=== PATIENT | male | born 1980 | race Caucasian/White ===

== ENCOUNTER 2016-08-09 11:47 | Emergency (ER) | payer BC ==
[~2016-08-09] VITALS: Ht 180.3 cm; Wt 72.6 kg
[~2016-08-09 11:47] MED LIST: EFFEXOR XR150 MG PO; Percocet 5/325,Endoc PO; ZOFRAN4 MG PO
[2016-08-09] MEDS ORDERED: FLEXERIL10 MG PO (12:51)
[2016-08-09] MEDS ORDERED: MOTRIN800 MG PO (12:51)
[2016-08-09 14:16] VITALS: BP 128/74
== END 2016-08-09 14:20 | disposition home or self-care (01) ==
LOC: EME 11:47
DX: M54.42 Lumbago with sciatica, left side (principal); F17.200 Nicotine dependence, unspecified, uncomplicated
CPT/HCPCS: 99281; 99283; J1100; J1885

== ENCOUNTER 2016-10-30 13:54 | Observation (INO) | payer BC ==
[~2016-10-30] VITALS: Ht 177.8 cm; Wt 73.3 kg
[~2016-10-30 13:54] MED LIST changes: +FLEXERIL10 MG PO; +MOTRIN800 MG PO
[2016-10-30 15:44] LABS: HEMATOCRIT 49.1 % (38.0-50.0); MCH 29.7 PG (29.0-34.0); MCHC 33.8 G/DL (30.0-36.0); MCV 87.8 FL (86-99); RBC DIS.WIDTH-CV 12.3 % (11.8-14.6); RBC DIS.WIDTH-SD 39.8 % (39-53); RED BLOOD COUNT 5.59 M/uL (4.00-5.50)
[2016-10-30 15:55] LABS: CHLORIDE 103 mEq/L (99-109); POTASSIUM 4.7 mEq/L (3.7-5.4); SODIUM 140 mEq/L (136-147)
[2016-10-30 15:56] LABS: GLUCOSE 90 mg/dL (70-99)
[2016-10-30 15:58] LABS: ANION GAP 9 MEQ/L (2-14)
[2016-10-30 16:00] LABS: GFR ESTIMATE (CALCULATED) > 59 mL/min/
[2016-10-30 16:01] LABS: UREA NITROGEN (BUN) 13 mg/dL (9-23)
[2016-10-30 16:10] LABS: TROP-I INTERPRETATION NEGATIVE; TROPONIN-I < 0.01 ng/mL (0.0-0.30)
[2016-10-30 16:49] LABS: PLAT.SUFFICIENCY ADEQUATE; PLATELET CLUMPS PRESENT - PLATELET COUNT APPEARS ADQ.; PLATELET COUNT UNABLE TO REPORT K/uL (156-360)
[2016-10-30 18:51] LABS: EOSINOPHIL (%) 0.1 % (0-5); IMMATURE GRANULOCYTE (%) 0.6 % (0.0-0.7); IMMATURE GRANULOCYTE COUNT 0.1 K/uL; INSTRUMENT ABS NEUTROPHIL CT 15.5 K/uL; LYMPHOCYTE COUNT 1.4 K/uL (1.0-2.8); MONOCYTE (%) 4.6 % (3-12); MONOCYTE COUNT 0.8 K/uL (0-0.8); NEUTROPHIL (%) 86.6 % (45-76); NEUTROPHIL COUNT 15.5 K/uL (1.8-6.4)
[2016-10-30] MEDS ORDERED: ALPRAZOLAM0.5 MG PO (18:54)
[2016-10-30 19:07] LABS: D-DIMER ELISA < 0.15 mg/L FEU (< 0.57); INTER. NORMALIZED RATIO 1.1; PROTHROMBIN TIME 11.2 (9.2-11.2); PTT 27.7 (25-32)
[2016-10-30 22:14] LABS: TROP-I INTERPRETATION NEGATIVE; TROPONIN-I < 0.01 ng/mL (0.0-0.30)
[2016-10-30 22:31] VITALS: BP 120/63
[2016-10-31] VITALS: BP 116/65
[2016-10-31 04:00] VITALS: BP 112/60
[2016-10-31 07:00] VITALS: BP 124/73
[2016-10-31 10:14] LABS: HEMATOCRIT 45.8 % (38.0-50.0); MCH 29.8 PG (29.0-34.0); MCHC 33.4 G/DL (30.0-36.0); MCV 89.3 FL (86-99); MEAN PLAT.VOLUME 11.5 uM^3 (9.0-12.4); RBC DIS.WIDTH-CV 12.5 % (11.8-14.6); RBC DIS.WIDTH-SD 41.5 % (39-53); RED BLOOD COUNT 5.13 M/uL (4.00-5.50)
[2016-10-31 10:34] LABS: PLATELET COUNT 172 K/uL (156-360)
[2016-10-31 10:36] LABS: ALKALINE PHOSPHATASE 39 IU/L (3-129); ANION GAP 8 MEQ/L (2-14); CHLORIDE 104 MEQ/L (99-109); GFR ESTIMATE (CALCULATED) > 59 mL/min/; GLUCOSE 108 mg/dL (70-99); POTASSIUM 4.4 MEQ/L (3.7-5.4); SAMPLE HEMOLYSIS CHECK 0; SAMPLE ICTERIC CHECK 0; SAMPLE LIPEMIA CHECK 0; SODIUM 138 MEQ/L (136-147); TOTAL BILIRUBIN 0.5 MG/DL (0.0-1.0); TROP-I INTERPRETATION NEGATIVE; TROPONIN-I < 0.01 ng/mL (0.0-0.30); UREA NITROGEN (BUN) 15 mg/dL (9-23)
[2016-10-31 11:04] LABS: HBSG INDEX 0.29
[2016-10-31 11:05] LABS: ANTI-HEPATITIS A VIRUS (IGM) Nonreactive; HPCA INDEX 0.07
[2016-10-31 11:07] LABS: ANTI-HEPATITIS B CORE (IGM) Nonreactive; HBC IgM INDEX 0.07
[2016-10-31 11:58] VITALS: BP 127/81
[2016-10-31] MEDS ORDERED: ASPIR-LOW81 MG PO (15:07)
[2016-10-31 15:52] VITALS: BP 118/59
== END 2016-10-31 16:10 | disposition home or self-care (01) ==
LOC: EME 13:54 → 5WEST 20:12 → EDOF 20:12 → 5WEST 21:56
PROVIDERS: Internal Medicine
DX: R07.9 Chest pain, unspecified (principal); D72.829 Elevated white blood cell count, unspecified; Z87.891 Personal history of nicotine dependence; F12.10 Cannabis abuse, uncomplicated; H47.9 Unspecified disorder of visual pathways
CPT/HCPCS: 70450; 70551; 71020; 80048; 80053; 80074; 80306 90; 84484; 85025; 85027; 85379; 85610; 85730; 93005; 99281; 99285; G0378; J1650; J7030

== ENCOUNTER 2017-04-19 11:37 | Emergency (ER) | payer SELFPAY ==
[~2017-04-19] VITALS: Ht 177.8 cm; Wt 70.2 kg
[~2017-04-19 11:37] MED LIST changes: +ALPRAZOLAM0.5 MG PO; +ASPIR-LOW81 MG PO
[2017-04-19 11:51] VITALS: BP 138/83
[2017-04-19 14:18] LABS: APPEARANCE SL.HAZY ((CLEAR)); BILIRUBIN NEGATIVE; BLOOD NEGATIVE; COLOR AMBER ((YELLOW)); GLUCOSE (STRIP) NEGATIVE; KETONES 20; LEUKOCYTES MODERATE; NITRITE POSITIVE; PROTEIN (STRIP) 30; SPECIFIC GRAVITY 1.026 (1.000-1.030); UROBILINOGEN 0.2 MG/DL (0.2-1.0)
[2017-04-19 14:38] LABS: BACTERIA 2+ /HPF; EPITHELIAL CELLS RARE /HPF; MUCUS 4+ /LPF; RED BLOOD CELLS 15-20 /HPF (0-5); WHITE BLOOD CELLS 40-50 /HPF (0-5)
[2017-04-19] MEDS ORDERED: KEFLEX500 MG PO (14:54)
== END 2017-04-19 15:37 | disposition home or self-care (01) ==
LOC: EME 11:37
PROVIDERS: Physician Assistant
DX: N39.0 Urinary tract infection, site not specified (principal); M54.5 Low back pain
CPT/HCPCS: 72100; 81003; 99281; 99283